=== PATIENT | female | born 1955 | race Caucasian/White ===

== ENCOUNTER → 2018-09-15 | Day surgery (SDC) | payer BC ==
[~2018-09-15] MED LIST: ANTIHISTAMINE PO; BENADRYL ALLERG25 MG PO; BIOTIN5 M1 PO; CENTRUM SILVER1 EAC3 PO; ESTRADIOL; ESTRADIOL0.5 MG PO; ESTRADIOL1 MG PO; FENTANYL CITRATE/PF 100MCG/2 ML INJ ONE; HAIR SKIN NAILS PO; HORMONE PO; HYOSCYAMINE 0.125 MG TAB ONE; MIDAZOLAM HCL 2 MG/2 ML VIAL ONE; NEXIUM40 MG PO; OTC ALLERGY MED PRN; PROPOFOL IV EMULSION 10 MG/ML 20 ML VIAL ONE; TURMERIC1 GM PO; VIT D3 PO; Z.0.NASONEX17 GM NS; ZANTAC PO
[2018-09-15 14:53] VITALS: BP 126/81
--- NOTE | 2018-09-15 15:07 | Operative Report ---
DATE OF PROCEDURE: 09/15/2018 SURGEON: Charly Bell MD PROCEDURE: EGD with biopsies and colonoscopy. INDICATION FOR EGD: Heartburn. INDICATION FOR COLONOSCOPY: Surveillance colonoscopy, personal history of colon polyps. MEDICATIONS: The patient was done under MAC, please see anesthesiologist's note. PROCEDURE IN DETAIL: With the patient in left lateral decubitus position, flexible fiberoptic Olympus gastroscope was introduced into the esophagus under direct visualization without any difficulty. There was some patchy erythema noted in distal esophagus. A minute tongue of velvety red mucosa was noted to extend proximally from the GE junction that was biopsied to rule out Burnham's. The scope was then advanced with ease into the stomach and mucosa overlying the antrum and the body revealed some patchy erythema and [id number] edema. Biopsies were obtained, sent to stain for H pylori. Several hyperplastic-appearing polyps were noted in the body of the stomach and some were partially excised with the cold biopsy forceps. The pylorus was of normal contour and shape, it was intubated with ease and the scope was advanced all the way to the second portion of the duodenum. The scope was then withdrawn slowly and mucosa overlying the proximal second portion and duodenal bulb appeared to be within normal limits. The scope was then withdrawn back into the stomach and retroflexed mucosa overlying the fundus and cardia appeared to be within normal limits. The scope was then straightened out, it was subsequently withdrawn. The patient tolerated the procedure well. IMPRESSION: 1. Distal esophagitis, mild. 2. Rule out Burnham esophagus. 3. Gastritis, biopsied. Biopsies sent to stain for Helicobacter pylori. 4. Gastric polyps, body, hyperplastic appearing, some partially excised with the cold biopsy forceps. 5. Rule out sprue. PLAN: Follow up histology. Continue Nexium 40 mg one p.o. q.a.m. a.c. PROCEDURE IN DETAIL: The patient was then turned around and after adequate lubrication of the anal canal, a flexible fiberoptic Olympus colonoscope was inserted into the rectum with ease and advanced all the way to the cecum. It was then withdrawn slowly. Mucosa overlying the cecum, ascending colon, transverse, descending, sigmoid, and rectum grossly appeared to be within normal limits. The scope was then retroflexed into the distal rectum and small internal hemorrhoids were noted, none of which was actively bleeding. The scope was then straightened out, it was subsequently withdrawn. The patient tolerated the procedure well. IMPRESSION: Internal hemorrhoids, none actively bleeding. PLAN: Initiate high-fiber low-fat diet. Initiate high-fiber supplement. The patient might benefit from a followup colonoscopy in 5 years. If no polyps were encountered in 5 years then followup colonoscopy in 10 years. Charly Bell MD [facility] [place] /[id number] cc: Pancho Ruiz MD
== END | disposition home or self-care (01) ==
LOC: OR 07:38
PROVIDERS: ATTEND Internal Medicine Gastroenterology
DX: K29.70 Gastritis, unspecified, without bleeding (principal); K31.7 Polyp of stomach and duodenum; K20.9 Esophagitis, unspecified; K22.8 Other specified diseases of esophagus; K21.9 Gastro-esophageal reflux disease without esophagitis; K64.8 Other hemorrhoids; R19.5 Other fecal abnormalities; N20.0 Calculus of kidney; Z91.041 Radiographic dye allergy status; Z91.040 Latex allergy status; Z01.810 Encounter for preprocedural cardiovascular examination; Z68.30 Body mass index [BMI] 30.0-30.9, adult; Z80.0 Family history of malignant neoplasm of digestive organs
CPT/HCPCS: 43239; 45378; 93005; J2250; J2704; J3010

== ENCOUNTER → 2019-08-11 | Outpatient (CLI) | payer BC ==
[~2019-08-11] MED LIST changes: -FENTANYL CITRATE/PF 100MCG/2 ML INJ ONE; -HYOSCYAMINE 0.125 MG TAB ONE; -MIDAZOLAM HCL 2 MG/2 ML VIAL ONE; -PROPOFOL IV EMULSION 10 MG/ML 20 ML VIAL ONE
--- NOTE | 2019-08-11 09:59 | Diagnostic Imaging Report ---
EXAM: US ABDOMEN COMPLETE DATE: 08/11/2019 7:30 AM INDICATION: Abdominal pain COMPARISON: None TECHNIQUE: Transverse and longitudinal sinha scale and color doppler sonographic images of the upper abdomen were obtained. FINDINGS: LIVER 15.7 cm in the right midclavicular line. Normal echogenicity of the liver with normal contour, no masses. SPLEEN 10.4 cm in maximum diameter. Normal echogenicity, no masses. GALLBLADDER 2.3 cm gallstone at the neck of the gallbladder. No gallbladder wall thickening, pericholecystic fluid, or gallbladder distention. Negative sonographic Hamilton's sign. The gallbladder wall measures 3 mm. BILE DUCTS No intra nor extra-hepatic biliary dilation. Common bile duct measures 3mm PANCREAS: Visualized portions are normal. RIGHT KIDNEY: 11.8 cm Echogenicity: Normal Collecting System: No hydronephrosis Stones: None Cyst/Mass: None LEFT KIDNEY: 10.8 cm Echogenicity: Normal Collecting System: No hydronephrosis Stones: None Cyst/Mass: None VESSELS: Aorta: Visualized portions are within normal size limits Inferior Vena Cava: Visualized portions are normal Main Portal Vein: 0.9 cm, normal size with hepatopetal flow. FREE FLUID: None IMPRESSION: Cholelithiasis without sonographic evidence of cholecystitis. Signed by: Melody Barbosa MD on 08/11/2019 9:56 AM
== END ==
LOC: US 07:18
PROVIDERS: ATTEND Internal Medicine Gastroenterology
DX: R10.10 Upper abdominal pain, unspecified (principal)
CPT/HCPCS: 76700

== ENCOUNTER → 2019-08-20 | Outpatient (CLI) | payer BC ==
--- NOTE | 2019-08-20 17:47 | Diagnostic Imaging Report ---
Hepatobiliary Scan with Gallbladder Ejection Fraction Clinical information: Upper abdominal pain x3 weeks Technique: Following intravenous administration of 6.6 millicuries of Tc-99m mebrofenin, dynamic images of the abdomen in the anterior projection were obtained through 60 minutes. Sincalide (CCK analog) 1.6 micrograms was administered intravenously over 30 minutes with additional imaging for determination of gallbladder ejection fraction. Discussion: Perfusion of the liver is normal. Extraction of tracer by the liver parenchyma is normal. Tracer appears promptly within the biliary tract. The gallbladder begins to fill by 10 minutes post injection of tracer and fills adequately. Tracer is seen in the small bowel by 22 minutes. The gallbladder ejection fraction with sincalide is 25% (normal greater than 40%). Impression: 1. Filling of the gallbladder excludes acute cystic duct obstruction/acute cholecystitis. 2. The decreased gallbladder ejection fraction of 25% supports the clinical diagnosis of chronic cholecystitis/gallbladder dyskinesia. Signed by: Dr. Ely Olivo M.D. on 08/20/2019 5:44 PM
== END ==
LOC: NM 08:51
PROVIDERS: ATTEND Internal Medicine Gastroenterology
DX: R10.10 Upper abdominal pain, unspecified (principal); R11.0 Nausea; Z86.010 Personal history of colon polyps
CPT/HCPCS: 78227; A9537

== ENCOUNTER → 2019-09-24 | Day surgery (SDC) | payer BC, OTHER ==
[2019-09-20 12:38] LABS: BASOPHILS # (AUTO) 0.1 (0.0-0.1); BASOPHILS % 0.7 % (0.0-1.0); EOSINOPHILS # (AUTO) 0.2 (0.0-0.4); EOSINOPHILS % 1.7 % (0.0-6.0); HEMATOCRIT 42.2 % (34.2-44.1); HEMOGLOBIN 13.5 g/dL (12.0-16.0); LYMPHOCYTES # (AUTO) 2.9 (1.0-3.2); LYMPHOCYTES % 31.5 % (18.0-39.1); MEAN CORPUSCULAR VOLUME 90.8 fL (81-99); MONOCYTES # (AUTO) 0.8 (0.2-0.8); MONOCYTES % 8.3 % (4.4-11.3); NEUTROPHILS # (AUTO) 5.2 (2.1-6.9); NEUTROPHILS % 57.4 % (38.7-80.0); PLATELET COUNT 284 x10e3/uL (140-360); RED BLOOD COUNT 4.65 x10e6/uL (3.6-5.1); RED CELL DISTRIBUTION WIDTH 12.9 % (11.7-14.4)
--- NOTE | 2019-09-20 12:54 | Diagnostic Imaging Report ---
EXAMINATION: CHEST 2 VIEWS INDICATION: Pre-operative COMPARISON: None FINDINGS: LINES/TUBES:None LUNGS:The lungs are well-inflated. No focal consolidation or pulmonary edema. PLEURA:No pleural effusion or pneumothorax. MEDIASTINUM:The cardiomediastinal silhouette appears normal in size and shape. BONES/SOFT TISSUES:No acute osseous injury. ABDOMEN:No free air under the diaphragm. IMPRESSION: No focal pneumonia or pulmonary edema. Signed by: Melody Barbosa MD on 09/20/2019 12:51 PM
[2019-09-20 13:00] LABS: ALANINE AMINOTRANSFERASE 26 IU/L (0-55); ALBUMIN 3.8 g/dL (3.5-5.0); ALKALINE PHOSPHATASE 95 IU/L (40-150); ANION GAP 10.8 mmol/L (8-16); BLOOD UREA NITROGEN 8 mg/dL (7-26); BUN/CREATININE RATIO 9 (6-25); CALCIUM 9.7 mg/dL (8.4-10.2); CARBON DIOXIDE 30 mmol/L (22-29); CHLORIDE 104 mmol/L (98-107); CREATININE, SERUM 0.88 mg/dL (0.57-1.11); EST GLOMERULAR FILTRATION RATE > 60 ML/MIN (60-); GLUCOSE 111 mg/dL (74-118); POTASSIUM 3.8 mmol/L (3.5-5.1); SODIUM 141 mmol/L (136-145)
[~2019-09-24] MED LIST changes: +BUPIVACAINE 0.25%/EPI 30ML SDV INJ ONE; +FENTANYL CITRATE/PF 100MCG/2 ML INJ ONE; +HYALURONIC ACID PO; +KETOROLAC TROMETHAMINE 30 MG/ML VIAL ONE; +LIDOCAINE HCL 2% LOCAL INJ 5 ML SDV VIAL INJ ONE; +ONDANSETRON HCL INJ 2MG/ML 2ML 2 MG/ML VIAL ONE; +PROPOFOL IV EMULSION 10 MG/ML 20 ML VIAL ONE; +SEVOFLURANE INHAL SOLN 250 ML PEN BTL ONE; +SUGAMMADEX SODIUM 200 MG/2 ML VIAL IV ONE
--- NOTE | 2019-09-24 11:34 | Operative Report ---
DATE OF PROCEDURE: 09/24/2019 SURGEON: Garry Tanner MD PREOPERATIVE DIAGNOSES: Cholecystitis and cholelithiasis. POSTOPERATIVE DIAGNOSES: Cholecystitis and cholelithiasis. OPERATION PERFORMED: Laparoscopic cholecystectomy. ASSISTANTS: 1. Dr. Toni Tanenr. 2. ADITI Doty. ANESTHESIA: General. COMPLICATIONS: None. ESTIMATED BLOOD LOSS: Minimal. DESCRIPTION OF PROCEDURE: With the patient lying in bed in supine position under good general endotracheal anesthesia, the abdomen was prepped with Hibiclens solution and draped in the usual manner. A Veress needle was introduced into the umbilicus and pneumoperitoneum was established without any difficulty. An 11 mm trocar was placed into the umbilicus and a 10 mm video laparoscope was placed into the intraabdominal cavity. Under direct vision, three 5 mm trocars were placed in the right subcostal region. Video laparoscopy at this point, revealed a gallbladder that had some adhesions at the neck and there was at least one large stone contained within the gallbladder. The rest of the abdominal exploration was otherwise within normal limits. The adhesions to the gallbladder were then slowly and carefully taken down. The peritoneum at the neck of the gallbladder was then opened and the cystic duct was identified. The cystic duct was then followed to its junction with the common duct. The cystic duct was then circumferentially dissected away from the common duct, doubly clipped and divided. The cystic artery was similarly doubly clipped and divided. The gallbladder was then slowly and carefully taken off the liver bed using the cautery scissors and perfect hemostasis was ascertained. The gallbladder was grasped through the umbilical port and removed without any difficulty. Video laparoscopy was then again carried out, the liver bed was found to be perfectly dry, all of the excess fluid was aspirated. The pneumoperitoneum was evacuated and all the trocars were removed under direct vision. The midline fascia at the umbilicus was then closed with a [id number] of 0 Vicryl. All layers were infiltrated on the way out with solution of 0.25% Marcaine. Subcutaneous tissue was approximated with 3-0 Vicryl and the skin was closed with subcuticular 5-0 Vicryl. Benzoin, Steri-Strips, and Band-Aids were applied. The sponge, lap, and needle counts were correct. The patient tolerated the procedure well and returned to the recovery room in stable condition. MD CIRILO Prajapati/MISAEL /[id number]
[2019-09-24 11:40] VITALS: BP 151/88
== END | disposition home or self-care (01) ==
LOC: OR 06:23
PROVIDERS: ATTEND Surgery
DX: K80.10 Calculus of gallbladder with chronic cholecystitis without obstruction (principal); K82.8 Other specified diseases of gallbladder; R42 Dizziness and giddiness; N20.0 Calculus of kidney; I10 Essential (primary) hypertension; Z91.041 Radiographic dye allergy status; Z91.040 Latex allergy status; Z01.810 Encounter for preprocedural cardiovascular examination; Z01.812 Encounter for preprocedural laboratory examination; Z01.818 Encounter for other preprocedural examination; Z11.59 Encounter for screening for other viral diseases
CPT/HCPCS: 36415; 47562; 71046; 80053; 85025; 88304; 93005; C1766; J1885; J2001; J2405; J2704; J3010; U0002

== ENCOUNTER 2022-02-03 15:17 | Inpatient (IN) | payer BC ==
[~2022-02-03] VITALS: Ht 162.6 cm; Wt 71.7 kg
[~2022-02-03 15:17] MED LIST changes: -BUPIVACAINE 0.25%/EPI 30ML SDV INJ ONE; -FENTANYL CITRATE/PF 100MCG/2 ML INJ ONE; -KETOROLAC TROMETHAMINE 30 MG/ML VIAL ONE; -LIDOCAINE HCL 2% LOCAL INJ 5 ML SDV VIAL INJ ONE; -ONDANSETRON HCL INJ 2MG/ML 2ML 2 MG/ML VIAL ONE; -PROPOFOL IV EMULSION 10 MG/ML 20 ML VIAL ONE; -SEVOFLURANE INHAL SOLN 250 ML PEN BTL ONE; -SUGAMMADEX SODIUM 200 MG/2 ML VIAL IV ONE
[2022-02-03] MEDS ORDERED: IBUPROFEN 600 MG TAB PO ONE (16:12)
[2022-02-03] MEDS ORDERED: ONDANSETRON HCL INJ 2MG/ML 2ML 2 MG/ML VIAL IV ONE (16:12)
[2022-02-03] MEDS ORDERED: CEFTRIAXONE 1 GM VIAL IV STA (16:12)
[2022-02-03] MEDS ORDERED: SODIUM CHLORIDE 0.9% 1000ML 1,000 ML IV ONE (16:15)
[2022-02-03] MEDS ORDERED: SODIUM CHLORIDE 0.9% IV ONE (16:15)
[2022-02-03 16:46] LABS: BASOPHILS # (AUTO) 0.1 (0.0-0.1); BASOPHILS % 0.2 % (0.0-1.0); HEMATOCRIT 40.6 % (34.2-44.1); LYMPHOCYTES # (AUTO) 1.1 (1.0-3.2); LYMPHOCYTES % 4.5 % (18.0-39.1); MEAN CORPUSCULAR HEMOGLOBIN 30.1 pg (28-32); MONOCYTES # (AUTO) 1.6 (0.2-0.8); MONOCYTES % 6.5 % (4.4-11.3); NEUTROPHILS % 86.5 % (38.7-80.0); PLATELET COUNT 221 x10e3/uL (140-360); RED BLOOD COUNT 4.32 x10e6/uL (3.6-5.1)
[2022-02-03 16:54] LABS: CLARITY,URINE CLOUDY (CLEAR); COLOR,URINE YELLOW (YELLOW)
[2022-02-03 16:55] LABS: INR 0.95; KETONES,URINE NEGATIVE (NEGATIVE); LEUKOCYTE ESTERASE ,URINE MODERATE (NEGATIVE); NITRITE,URINE NEGATIVE (NEGATIVE); PROTEIN,URINE DIPSTICK >=300 (NEGATIVE); PROTHROMBIN TIME 13.5 seconds (11.9-14.5); URINE UROBILINOGEN 0.2 mg/dL (0.2 - 1)
[2022-02-03 16:56] LABS: PARTIAL THROMBOPLASTIN TIME 32.6 seconds (23.8-35.5)
[2022-02-03 17:01] LABS: WBC,URINE (MAN) 21-50 /HPF (0-5)
[2022-02-03 17:02] LABS: BACTERIA,URINE MANY /HPF; EPITHELIAL CELLS,URINE MODERATE /LPF
[2022-02-03 17:03] LABS: RENAL EPITHELIAL CELLS,URINE FEW
[2022-02-03 17:04] LABS: ALANINE AMINOTRANSFERASE 6 IU/L (0-55); ALBUMIN 3.7 g/dL (3.5-5.0); ALKALINE PHOSPHATASE 52 IU/L (40-150); ANION GAP 17.1 mmol/L (8-16); BLOOD UREA NITROGEN < 5 mg/dL (7-26); CARBON DIOXIDE 21 mmol/L (22-29); CHLORIDE 93 mmol/L (98-107); CREATININE, SERUM < 0.30 mg/dL (0.57-1.11); GLUCOSE 139 mg/dL (74-118); POTASSIUM 3.1 mmol/L (3.5-5.1); SODIUM 128 mmol/L (136-145)
[2022-02-03 17:13] LABS: BAND NEUTROPHILS % (MANUAL) 4 %; LYMPHOCYTES % (MANUAL) 4 % (19-48); METAMYELOCYTES % (MANUAL) 1 % (0-0); MONOCYTES % (MANUAL) 9 % (3.4-9.0); MYELOCYTES % (MANUAL) 1 % (0-0); NEUTROPHILS % (MANUAL) 81 % (40-74); PLATELET ESTIMATE ADEQUATE; PLATELET MORPHOLOGY COMMENT RARE EDTA CLUMPING
[2022-02-03 17:16] LABS: BUN/CREATININE RATIO 17 (6-25)
[2022-02-03] MEDS ORDERED: ONDANSETRON HCL INJ 2MG/ML 2ML 2 MG/ML VIAL IV PRN (18:00)
[2022-02-03 20:00] VITALS: BP 115/66
[2022-02-03] MEDS: SODIUM CHLORIDE 0.9% 1000ML 1,000 ML IV SCH (21:25)
[2022-02-03 23:13] VITALS: BP 115/66
[2022-02-04] VITALS (8 sets, daily range): BP systolic 102–142; BP diastolic 55–75
[2022-02-04] MEDS: ACETAMINOPHEN 325 MG TAB PO PRN ×3 (00:33→20:42)
[2022-02-04] MEDS: SODIUM CHLORIDE 0.9% 1000ML 1,000 ML IV SCH ×4 (05:00→22:59)
[2022-02-04 05:47] LABS: BASOPHILS % 0.2 % (0.0-1.0); EOSINOPHILS # (AUTO) 0.1 (0.0-0.4); EOSINOPHILS % 0.3 % (0.0-6.0); HEMOGLOBIN 11.4 g/dL (12.0-16.0); LYMPHOCYTES # (AUTO) 0.9 (1.0-3.2); LYMPHOCYTES % 4.3 % (18.0-39.1); MEAN CORPUSCULAR HEMOGLOBIN 30.2 pg (28-32); MEAN CORPUSCULAR HGB CONC 30.8 g/dL (31-35); MEAN CORPUSCULAR VOLUME 98.1 fL (81-99); MONOCYTES % 4.8 % (4.4-11.3); NEUTROPHILS # (AUTO) 17.2 (2.1-6.9); NEUTROPHILS % 86.2 % (38.7-80.0); PLATELET COUNT 168 x10e3/uL (140-360); RED BLOOD COUNT 3.77 x10e6/uL (3.6-5.1); RED CELL DISTRIBUTION WIDTH 13.1 % (11.7-14.4)
[2022-02-04] MEDS: Morphine 4mg INJECTION 4 MG/ML INJ IV PRN ×3 (07:42→21:28)
[2022-02-04 08:16] LABS: BAND NEUTROPHILS % (MANUAL) 6 %; LYMPHOCYTES % (MANUAL) 5 % (19-48); MONOCYTES % (MANUAL) 4 % (3.4-9.0); NEUTROPHILS % (MANUAL) 82 % (40-74); PLATELET ESTIMATE ADEQUATE; PLATELET MORPHOLOGY COMMENT NORMAL; RBC MORPHOLOGY COMMENT NORMAL
[2022-02-04 08:52] LABS: ALBUMIN 3.1 g/dL (3.5-5.0); ALBUMIN/GLOBULIN RATIO 1.1 (0.8-2.0); ANION GAP 16.5 mmol/L (8-16); CREATININE, SERUM 2.15 mg/dL (0.57-1.11); POTASSIUM 3.5 mmol/L (3.5-5.1)
[2022-02-05] VITALS (7 sets, daily range): BP systolic 131–165; BP diastolic 70–92
[2022-02-05] MEDS: Morphine 4mg INJECTION 4 MG/ML INJ IV PRN ×4 (03:54→23:30)
[2022-02-05] MEDS: SODIUM CHLORIDE 0.9% 1000ML 1,000 ML IV SCH ×2 (06:18→23:35)
[2022-02-05 07:09] LABS: BASOPHILS % 0.2 % (0.0-1.0); EOSINOPHILS # (AUTO) 0.1 (0.0-0.4); EOSINOPHILS % 0.4 % (0.0-6.0); HEMATOCRIT 34.8 % (34.2-44.1); HEMOGLOBIN 10.7 g/dL (12.0-16.0); LYMPHOCYTES # (AUTO) 1.2 (1.0-3.2); LYMPHOCYTES % 6.4 % (18.0-39.1); MEAN CORPUSCULAR HGB CONC 30.7 g/dL (31-35); MEAN CORPUSCULAR VOLUME 97.5 fL (81-99); MONOCYTES # (AUTO) 1.2 (0.2-0.8); NEUTROPHILS # (AUTO) 16.2 (2.1-6.9); NEUTROPHILS % 85.2 % (38.7-80.0); PLATELET COUNT 160 x10e3/uL (140-360); RED BLOOD COUNT 3.57 x10e6/uL (3.6-5.1); RED CELL DISTRIBUTION WIDTH 13.4 % (11.7-14.4)
[2022-02-05 08:06] LABS: ALBUMIN 2.9 g/dL (3.5-5.0); ALBUMIN/GLOBULIN RATIO 1.1 (0.8-2.0); ANION GAP 13.1 mmol/L (8-16); CALCIUM 7.8 mg/dL (8.4-10.2); CREATININE, SERUM 2.09 mg/dL (0.57-1.11); POTASSIUM 3.1 mmol/L (3.5-5.1)
[2022-02-05] MEDS ORDERED: GENTAMICIN 120MG/NS 100ML 100 ML IV ONE (09:45)
[2022-02-05] MEDS: POTASSIUM CHLORIDE 20MEQ/100ML 100 ML IV SCH ×2 (10:46→15:29)
[2022-02-05] MEDS: ACETAMINOPHEN 325 MG TAB PO PRN (10:58)
[2022-02-06] VITALS (7 sets, daily range): BP systolic 141–172; BP diastolic 72–88
[2022-02-06] MEDS: SODIUM CHLORIDE 0.9% 1000ML 1,000 ML IV SCH ×3 (04:08→09:43)
[2022-02-06] MEDS: Morphine 4mg INJECTION 4 MG/ML INJ IV PRN ×4 (04:08→21:10)
[2022-02-06 06:17] LABS: BASOPHILS # (AUTO) 0.1 (0.0-0.1); BASOPHILS % 0.5 % (0.0-1.0); EOSINOPHILS # (AUTO) 0.2 (0.0-0.4); HEMATOCRIT 32.8 % (34.2-44.1); HEMOGLOBIN 10.8 g/dL (12.0-16.0); LYMPHOCYTES # (AUTO) 1.4 (1.0-3.2); LYMPHOCYTES % 8.1 % (18.0-39.1); MEAN CORPUSCULAR HGB CONC 32.9 g/dL (31-35); MEAN CORPUSCULAR VOLUME 91.1 fL (81-99); MONOCYTES # (AUTO) 1.6 (0.2-0.8); MONOCYTES % 9.4 % (4.4-11.3); NEUTROPHILS # (AUTO) 13.1 (2.1-6.9); NEUTROPHILS % 77.9 % (38.7-80.0); PLATELET COUNT 206 x10e3/uL (140-360); RED CELL DISTRIBUTION WIDTH 13.6 % (11.7-14.4)
[2022-02-06] MEDS: METOPROLOL SUCCINATE 25 MG TAB XL PO SCH ×2 (06:17→15:58)
[2022-02-06 06:35] LABS: ALBUMIN 2.9 g/dL (3.5-5.0); ANION GAP 14.3 mmol/L (8-16); CALCIUM 8.5 mg/dL (8.4-10.2); CREATININE, SERUM 1.71 mg/dL (0.57-1.11); POTASSIUM 3.3 mmol/L (3.5-5.1)
[2022-02-06] MEDS ORDERED: POTASSIUM CHLORIDE 20 MEQ TAB CR PO ONE (11:00)
[2022-02-06] MEDS: ACETAMINOPHEN 325 MG TAB PO PRN ×2 (11:40→21:00)
[2022-02-06] MEDS ORDERED: FUROSEMIDE INJ 10 MG/ML 2 ML VIAL IV ONE (11:45)
[2022-02-06] MEDS: SODIUM BICARBONATE 650 MG TAB PO SCH (15:56)
[2022-02-07] VITALS (9 sets, daily range): BP systolic 104–156; BP diastolic 59–87
[2022-02-07] MEDS: SODIUM CHLORIDE 0.9% 1000ML 1,000 ML IV SCH (03:17)
[2022-02-07 05:51] LABS: BASOPHILS # (AUTO) 0.1 (0.0-0.1); BASOPHILS % 0.7 % (0.0-1.0); EOSINOPHILS # (AUTO) 0.3 (0.0-0.4); EOSINOPHILS % 1.9 % (0.0-6.0); HEMATOCRIT 33.4 % (34.2-44.1); HEMOGLOBIN 10.9 g/dL (12.0-16.0); LYMPHOCYTES # (AUTO) 1.5 (1.0-3.2); LYMPHOCYTES % 9.5 % (18.0-39.1); MEAN CORPUSCULAR HEMOGLOBIN 29.8 pg (28-32); MEAN CORPUSCULAR HGB CONC 32.6 g/dL (31-35); MEAN CORPUSCULAR VOLUME 91.3 fL (81-99); MONOCYTES # (AUTO) 1.8 (0.2-0.8); MONOCYTES % 11.5 % (4.4-11.3); NEUTROPHILS # (AUTO) 10.9 (2.1-6.9); NEUTROPHILS % 70.8 % (38.7-80.0); PLATELET COUNT 240 x10e3/uL (140-360); RED BLOOD COUNT 3.66 x10e6/uL (3.6-5.1)
[2022-02-07 06:26] LABS: ALBUMIN/GLOBULIN RATIO 0.9 (0.8-2.0); ANION GAP 12.7 mmol/L (8-16); CALCIUM 8.9 mg/dL (8.4-10.2); CREATININE, SERUM 1.56 mg/dL (0.57-1.11); POTASSIUM 3.7 mmol/L (3.5-5.1)
[2022-02-07 06:27] LABS: CHOL/HDL RATIO 13.9 (3.0-3.6)
[2022-02-07 06:35] LABS: THYROID STIMULATING HORMONE 1.45 uIU/mL (0.350-4.940)
[2022-02-07] MEDS: SODIUM BICARBONATE 650 MG TAB PO SCH ×2 (09:13→16:40)
[2022-02-07] MEDS: METOPROLOL SUCCINATE 25 MG TAB XL PO SCH ×2 (09:14→16:40)
[2022-02-07] MEDS: Morphine 4mg INJECTION 4 MG/ML INJ IV PRN ×3 (09:35→22:36)
[2022-02-07] MEDS: ONDANSETRON HCL 4 MG ORAL DISINTEGRATING TAB PO PRN (14:40)
[2022-02-08] VITALS: BP 135/65
[2022-02-08] MEDS: ACETAMINOPHEN 325 MG TAB PO PRN (01:09)
[2022-02-08 05:49] LABS: BASOPHILS # (AUTO) 0.1 (0.0-0.1); BASOPHILS % 0.6 % (0.0-1.0); EOSINOPHILS # (AUTO) 0.3 (0.0-0.4); EOSINOPHILS % 2.2 % (0.0-6.0); HEMATOCRIT 30.9 % (34.2-44.1); LYMPHOCYTES # (AUTO) 2.6 (1.0-3.2); LYMPHOCYTES % 17.7 % (18.0-39.1); MEAN CORPUSCULAR HEMOGLOBIN 29.4 pg (28-32); MEAN CORPUSCULAR HGB CONC 32.4 g/dL (31-35); MEAN CORPUSCULAR VOLUME 90.9 fL (81-99); MONOCYTES # (AUTO) 1.8 (0.2-0.8); MONOCYTES % 12.5 % (4.4-11.3); NEUTROPHILS % 61.4 % (38.7-80.0); PLATELET COUNT 256 x10e3/uL (140-360)
[2022-02-08 06:36] LABS: ALBUMIN 2.2 g/dL (3.5-5.0); ALBUMIN/GLOBULIN RATIO 0.6 (0.8-2.0); ANION GAP 13.4 mmol/L (8-16); CALCIUM 8.9 mg/dL (8.4-10.2); CREATININE, SERUM 1.31 mg/dL (0.57-1.11); POTASSIUM 3.4 mmol/L (3.5-5.1)
[2022-02-08 07:57] VITALS: BP 142/79
[2022-02-08] MEDS: SODIUM BICARBONATE 650 MG TAB PO SCH ×2 (08:30→17:00)
[2022-02-08] MEDS: METOPROLOL SUCCINATE 25 MG TAB XL PO SCH ×2 (08:31→17:18)
[2022-02-08 08:33] LABS: EOSINOPHILS % (MANUAL) 2 % (0-7); LYMPHOCYTES % (MANUAL) 11 % (19-48); METAMYELOCYTES % (MANUAL) 2 % (0-0); MONOCYTES % (MANUAL) 9 % (3.4-9.0); MYELOCYTES % (MANUAL) 1 % (0-0); NEUTROPHILS % (MANUAL) 75 % (40-74); PLATELET ESTIMATE ADEQUATE; PLATELET MORPHOLOGY COMMENT NORMAL; RBC MORPHOLOGY COMMENT NORMAL
[2022-02-08 08:43] VITALS: BP 142/79
[2022-02-08 15:29] VITALS: BP 151/83
[2022-02-08] MEDS: Morphine 4mg INJECTION 4 MG/ML INJ IV PRN (18:19)
[2022-02-08 19:40] VITALS: BP 151/83
[2022-02-08 20:00] VITALS: BP 147/74
[2022-02-09] VITALS (9 sets, daily range): BP systolic 136–169; BP diastolic 69–96
[2022-02-09] MEDS: ACETAMINOPHEN 325 MG TAB PO PRN (01:50)
[2022-02-09] MEDS: SODIUM BICARBONATE 650 MG TAB PO SCH ×2 (09:07→17:05)
[2022-02-09] MEDS: METOPROLOL SUCCINATE 25 MG TAB XL PO SCH ×2 (09:08→17:06)
[2022-02-09] MEDS: ONDANSETRON HCL 4 MG ORAL DISINTEGRATING TAB PO PRN (10:22)
[2022-02-09 12:09] LABS: BASOPHILS # (AUTO) 0.1 (0.0-0.1); BASOPHILS % 0.4 % (0.0-1.0); EOSINOPHILS # (AUTO) 0.2 (0.0-0.4); EOSINOPHILS % 1.3 % (0.0-6.0); HEMOGLOBIN 10.6 g/dL (12.0-16.0); LYMPHOCYTES # (AUTO) 2.5 (1.0-3.2); LYMPHOCYTES % 14.1 % (18.0-39.1); MEAN CORPUSCULAR HEMOGLOBIN 29.8 pg (28-32); MEAN CORPUSCULAR HGB CONC 31.2 g/dL (31-35); MEAN CORPUSCULAR VOLUME 95.5 fL (81-99); MONOCYTES # (AUTO) 1.7 (0.2-0.8); MONOCYTES % 9.6 % (4.4-11.3); NEUTROPHILS # (AUTO) 12.3 (2.1-6.9); NEUTROPHILS % 70.4 % (38.7-80.0); PLATELET COUNT 322 x10e3/uL (140-360); RED BLOOD COUNT 3.56 x10e6/uL (3.6-5.1); RED CELL DISTRIBUTION WIDTH 13.7 % (11.7-14.4)
[2022-02-09] MEDS: Morphine 4mg INJECTION 4 MG/ML INJ IV PRN (13:46)
[2022-02-09 20:31] LABS: CLARITY,URINE CLEAR (CLEAR); COLOR,URINE YELLOW (YELLOW)
[2022-02-09 20:32] LABS: KETONES,URINE NEGATIVE (NEGATIVE); LEUKOCYTE ESTERASE ,URINE NEGATIVE (NEGATIVE); NITRITE,URINE NEGATIVE (NEGATIVE); PROTEIN,URINE DIPSTICK NEGATIVE (NEGATIVE); URINE UROBILINOGEN 0.2 mg/dL (0.2 - 1)
[2022-02-09 21:02] LABS: BACTERIA,URINE FEW /HPF; EPITHELIAL CELLS,URINE MANY /LPF; WBC,URINE (MAN) 0-5 /HPF (0-5)
[2022-02-10] VITALS (8 sets, daily range): BP systolic 145–183; BP diastolic 73–84
[2022-02-10 06:09] LABS: BASOPHILS # (AUTO) 0.1 (0.0-0.1); BASOPHILS % 0.5 % (0.0-1.0); EOSINOPHILS # (AUTO) 0.3 (0.0-0.4); EOSINOPHILS % 2.2 % (0.0-6.0); HEMATOCRIT 31.6 % (34.2-44.1); HEMOGLOBIN 10.4 g/dL (12.0-16.0); LYMPHOCYTES # (AUTO) 2.6 (1.0-3.2); LYMPHOCYTES % 16.9 % (18.0-39.1); MEAN CORPUSCULAR HEMOGLOBIN 29.8 pg (28-32); MEAN CORPUSCULAR HGB CONC 32.9 g/dL (31-35); MEAN CORPUSCULAR VOLUME 90.5 fL (81-99); MONOCYTES # (AUTO) 1.2 (0.2-0.8); MONOCYTES % 7.9 % (4.4-11.3); NEUTROPHILS # (AUTO) 10.6 (2.1-6.9); NEUTROPHILS % 69.2 % (38.7-80.0); PLATELET COUNT 339 x10e3/uL (140-360); RED BLOOD COUNT 3.49 x10e6/uL (3.6-5.1)
[2022-02-10] MEDS ORDERED: CLONIDINE HCL 0.1 MG TAB PO PRN (06:15)
[2022-02-10 06:29] LABS: ALBUMIN 2.5 g/dL (3.5-5.0); ALBUMIN/GLOBULIN RATIO 0.6 (0.8-2.0); ANION GAP 16.1 mmol/L (8-16); CALCIUM 8.7 mg/dL (8.4-10.2); CREATININE, SERUM 1.12 mg/dL (0.57-1.11); POTASSIUM 3.1 mmol/L (3.5-5.1)
[2022-02-10] MEDS: METOPROLOL SUCCINATE 25 MG TAB XL PO SCH ×2 (08:44→16:08)
[2022-02-10] MEDS: SODIUM BICARBONATE 650 MG TAB PO SCH ×2 (09:00→16:07)
[2022-02-10] MEDS ORDERED: POTASSIUM CHLORIDE 20 MEQ TAB CR PO ONE (11:00)
[2022-02-11 06:43] LABS: ANION GAP 17.2 mmol/L (8-16); CALCIUM 8.6 mg/dL (8.4-10.2); CREATININE, SERUM 1.12 mg/dL (0.57-1.11); POTASSIUM 3.2 mmol/L (3.5-5.1)
[2022-02-11 07:15] LABS: BASOPHILS # (AUTO) 0.1 (0.0-0.1); BASOPHILS % 0.3 % (0.0-1.0); EOSINOPHILS # (AUTO) 0.2 (0.0-0.4); EOSINOPHILS % 1.5 % (0.0-6.0); HEMOGLOBIN 10.7 g/dL (12.0-16.0); LYMPHOCYTES # (AUTO) 2.7 (1.0-3.2); LYMPHOCYTES % 17.2 % (18.0-39.1); MEAN CORPUSCULAR HEMOGLOBIN 29.7 pg (28-32); MEAN CORPUSCULAR HGB CONC 30.6 g/dL (31-35); MEAN CORPUSCULAR VOLUME 97.2 fL (81-99); MONOCYTES # (AUTO) 1.1 (0.2-0.8); MONOCYTES % 7.4 % (4.4-11.3); NEUTROPHILS # (AUTO) 11.1 (2.1-6.9); NEUTROPHILS % 71.8 % (38.7-80.0); PLATELET COUNT 391 x10e3/uL (140-360); RED CELL DISTRIBUTION WIDTH 13.7 % (11.7-14.4)
[2022-02-11 08:00] VITALS: BP 172/81
[2022-02-11 08:48] VITALS: BP 178/81
[2022-02-11] MEDS ORDERED: POTASSIUM CHLORIDE 20 MEQ TAB CR PO ONE (09:00)
[2022-02-11] MEDS: SODIUM BICARBONATE 650 MG TAB PO SCH ×2 (09:17→17:03)
[2022-02-11] MEDS: METOPROLOL SUCCINATE 25 MG TAB XL PO SCH ×2 (09:18→17:03)
[2022-02-11 12:02] VITALS: BP 163/77
[2022-02-11] MEDS: VANCOMYCIN HCL 125 MG CAPSULE PO SCH ×2 (12:46→18:43)
[2022-02-11 16:17] VITALS: BP 157/84
[2022-02-11 20:00] VITALS: BP 157/84
[2022-02-11 20:50] VITALS: BP 138/82
[2022-02-12] VITALS (9 sets, daily range): BP systolic 136–184; BP diastolic 69–87
[2022-02-12] MEDS: VANCOMYCIN HCL 125 MG CAPSULE PO SCH ×5 (00:31→23:46)
[2022-02-12 05:58] LABS: BASOPHILS # (AUTO) 0.1 (0.0-0.1); BASOPHILS % 0.5 % (0.0-1.0); EOSINOPHILS # (AUTO) 0.3 (0.0-0.4); HEMATOCRIT 33.7 % (34.2-44.1); HEMOGLOBIN 10.2 g/dL (12.0-16.0); LYMPHOCYTES # (AUTO) 2.6 (1.0-3.2); LYMPHOCYTES % 19.4 % (18.0-39.1); MEAN CORPUSCULAR HEMOGLOBIN 29.4 pg (28-32); MEAN CORPUSCULAR HGB CONC 30.3 g/dL (31-35); MEAN CORPUSCULAR VOLUME 97.1 fL (81-99); MONOCYTES # (AUTO) 1.1 (0.2-0.8); MONOCYTES % 8.5 % (4.4-11.3); NEUTROPHILS % 67.7 % (38.7-80.0); PLATELET COUNT 385 x10e3/uL (140-360); RED BLOOD COUNT 3.47 x10e6/uL (3.6-5.1); RED CELL DISTRIBUTION WIDTH 13.6 % (11.7-14.4)
[2022-02-12 06:39] LABS: ANION GAP 13.7 mmol/L (8-16); CALCIUM 8.7 mg/dL (8.4-10.2); CREATININE, SERUM 0.98 mg/dL (0.57-1.11); POTASSIUM 3.7 mmol/L (3.5-5.1)
[2022-02-12] MEDS: METOPROLOL SUCCINATE 25 MG TAB XL PO SCH ×2 (09:40→17:29)
[2022-02-12] MEDS: SODIUM BICARBONATE 650 MG TAB PO SCH ×2 (09:40→17:28)
[2022-02-12 19:41] LABS: BASOPHILS # (AUTO) 0.1 (0.0-0.1); BASOPHILS % 0.4 % (0.0-1.0); EOSINOPHILS # (AUTO) 0.2 (0.0-0.4); EOSINOPHILS % 1.6 % (0.0-6.0); HEMATOCRIT 35.4 % (34.2-44.1); HEMOGLOBIN 10.9 g/dL (12.0-16.0); LYMPHOCYTES # (AUTO) 2.6 (1.0-3.2); LYMPHOCYTES % 19.7 % (18.0-39.1); MEAN CORPUSCULAR HEMOGLOBIN 29.9 pg (28-32); MEAN CORPUSCULAR HGB CONC 30.8 g/dL (31-35); MEAN CORPUSCULAR VOLUME 97.3 fL (81-99); MONOCYTES % 7.2 % (4.4-11.3); NEUTROPHILS # (AUTO) 9.3 (2.1-6.9); NEUTROPHILS % 69.8 % (38.7-80.0); PLATELET COUNT 410 x10e3/uL (140-360); RED BLOOD COUNT 3.64 x10e6/uL (3.6-5.1); RED CELL DISTRIBUTION WIDTH 13.6 % (11.7-14.4)
[2022-02-13 01:44] VITALS: BP 143/71
[2022-02-13 04:41] VITALS: BP 134/76
[2022-02-13] MEDS: VANCOMYCIN HCL 125 MG CAPSULE PO SCH ×2 (05:30→12:06)
[2022-02-13 06:10] LABS: ANION GAP 13.9 mmol/L (8-16); CALCIUM 8.5 mg/dL (8.4-10.2); CREATININE, SERUM 1.03 mg/dL (0.57-1.11); POTASSIUM 3.9 mmol/L (3.5-5.1)
[2022-02-13 07:52] VITALS: BP 127/80
[2022-02-13 08:30] VITALS: BP 127/80
[2022-02-13] MEDS: METOPROLOL SUCCINATE 25 MG TAB XL PO SCH (08:54)
[2022-02-13] MEDS: SODIUM BICARBONATE 650 MG TAB PO SCH (08:54)
[2022-02-13 11:54] VITALS: BP 132/79
== END 2022-02-13 15:50 | disposition home or self-care (01) | DRG 871 ==
LOC: ER 15:43 → ERHOLD 17:51 → MED/SURG3 19:26
PROVIDERS: ADMIT Family Medicine; ATTEND Family Medicine
DX: A41.51 Sepsis due to Escherichia coli [E. coli] (principal); N17.0 Acute kidney failure with tubular necrosis; E87.1 Hypo-osmolality and hyponatremia; N10 Acute pyelonephritis; E87.20 Acidosis, unspecified; Z16.12 Extended spectrum beta lactamase (ESBL) resistance; A04.72 Enterocolitis due to Clostridium difficile, not specified as recurrent; K76.0 Fatty (change of) liver, not elsewhere classified; N20.0 Calculus of kidney; D64.9 Anemia, unspecified; R06.03 Acute respiratory distress; E87.70 Fluid overload, unspecified; N18.32 Chronic kidney disease, stage 3b; E66.9 Obesity, unspecified; R65.20 Severe sepsis without septic shock; E86.0 Dehydration; E87.6 Hypokalemia; Z87.442 Personal history of urinary calculi; Z90.49 Acquired absence of other specified parts of digestive tract; Z88.7 Allergy status to serum and vaccine; Z91.041 Radiographic dye allergy status; Z91.040 Latex allergy status; Z68.27 Body mass index [BMI] 27.0-27.9, adult
CPT/HCPCS: 36415; 71045; 71046; 74176; 76770; 80048; 80053; 80061; 81001; 83605; 83880; 83970; 84443; 84550; 85025; 85610; 85730; 87040; 87071; 87086; 87186; 87205; 87324; 87449; 93005; 93306; 94799; 99251; 99284; J0690; J0692; J0696; J1580; J1940; J2270; J2405; J3480; J7030; Q0162